=== PATIENT | female | born 1940 | race Hispanic/Latino ===

== ENCOUNTER 2017-01-27 09:42 | Emergency (ER) | payer MEDICARE ==
[2017-01-27 09:42] VITALS: BMI 42.2
[2017-01-27 09:54] VITALS: BP 135/112; PULSE 97; O2SAT 99
[2017-01-27 09:58] VITALS: RESP 16; TEMP 97
--- NOTE | 2017-01-27 10:34 | ED PDOC ---
HPI: Head Injury Time Seen by Provider: 01/27/17 10:17 Chief Complaint (Nursing): Trauma Chief Complaint (Provider): head injury History Per: Patient History/Exam Limitations: no limitations Injury Occurred (Timing): Just Before Arrival Onset/Duration Of Symptoms: Sudden Onset Patient States: Fell Striking Head Severity: Mild Loss Of Consciousness: No Additional Complaint(s): 76 year old female brought in by EMS after fall and injury to head. Patient states she went to open door and stepped backwards, missed footing and fell onto wooden floor hitting back of her head. She reports remembering all event of fall and denies any LOC. Son witnessed fall. She denies any dizziness prior to or after fall. Denies and nausea or vomiting. Patient takes Aspirin daily, but did not take today and has not taken any of her medications today. Past Medical History Reviewed: Historical Data, Nursing Documentation, Vital Signs Vital Signs: Last Vital Signs Temp 97.0 F L 01/27/17 09:57 Pulse 97 H 01/27/17 09:57 Resp 16 01/27/17 09:57 BP 135/112 H 01/27/17 09:57 Pulse Ox 99 01/27/17 09:57 - Medical History PMH: CAD, HTN, Peripheral Edema, Pneumonia - Surgical History Surgical History: Appendectomy (AT AGE 15), CABG (01/02/2015 C/O DR. TOM), Coronary Stent (RCA 2004, DIAGONAL 2007) - Family History Family History: States: CAD - Living Arrangements Living Arrangements: With Family - Home Medications Home Medications: Ambulatory Orders Medication Instructions Recorded Acetaminophen [Tylenol] 650 mg PO Q6H PRN 01/06/15 Aspirin [Ecotrin] 81 mg PO DAILY 01/06/15 Cilostazol 50 mg PO DAILY 01/06/15 Ipratropium/Albuterol Sulfate 3 ml IH QID 01/06/15 [Duoneb 3 mg/3 ml-0.5 mg/3 ml 3 ml] MetFORMIN [glucOPHAGE] 500 mg PO BID 01/06/15 Pantoprazole [Protonix] 40 mg PO DAILY 01/06/15 Fluocinonide 0.05% Ointment [Lidex 1 appl TOP DAILY 01/21/15 0.05% Oint] Lactobacillus Acidophilus [Bacid 1 cap PO BID 01/21/15 Acidophilus] Mupirocin 2% Ointment [Bactroban 1 appl TOP Q12 01/21/15 Ointment] Furosemide [Lasix] 40 mg PO DAILY 02/03/15 GlipiZIDE SR [Glucotrol XL] 10 mg PO BID 02/03/15 Multivitamin [Multi-Delyn Liquid] 5 ml PO DAILY 02/03/15 - Allergies Allergies/Adverse Reactions: Allergies Allergy/AdvReac Type Severity Reaction Status Date / Time No Known Allergies Allergy Verified 01/27/17 09:52 Review of Systems Eyes: Negative for: Pain, Vision Change Cardiovascular: Negative for: Chest Pain, Palpitations Respiratory: Negative for: Cough, Shortness of Breath Gastrointestinal: Negative for: Nausea, Vomiting Musculoskeletal: Negative for: Neck Pain, Back Pain Skin: Positive for: Other (abrasion to head) Neurological: Negative for: Weakness, Numbness, Change in Speech, Confusion, Seizures, Headache, Dizziness Physical Exam - Reviewed Nursing Documentation Reviewed: Yes Vital Signs Reviewed: Yes - Physical Exam Appears: Positive for: Well, Non-toxic, No Acute Distress Skin: Positive for: Warm, Dry Eye Exam: Positive for: Normal appearance, EOMI, PERRL Neck: Positive for: Normal, Painless ROM Cardiovascular/Chest: Positive for: Regular Rate, Rhythm, Chest Non Tender. Negative for: Murmur Respiratory: Positive for: Normal Breath Sounds. Negative for: Wheezing, Respiratory Distress Back: Positive for: Normal Inspection. Negative for: Decreased ROM Extremity: Positive for: Normal ROM. Negative for: Tenderness, Deformity, Swelling Neurologic/Psych: Positive for: Alert, Oriented Comments: Head: Normocephalic. Mild tenderness and mild swelling to mid-posterior scalp with 3mm linear abrasion, no active bleeding. - ECG O2 Sat by Pulse Oximetry: 99 Medical Decision Making Medical Decision Makin y.o female with acute head injury, appears to be caused by mechanical fall. Patient takes ASA daily, not taken today. No neuro deficits. Accucheck was 366. EKG is NS at 93bpm with incomplete LBBB and LVH, no acute changes from prior EKG 01/20/15; also viewed by Dr Jean-Baptiste. Head CT ordered. Patient does not want any analgesic. Scalp wound irrigated with NS, superificial wound, no deep involvement and does not need laceration repair. Bacitracin was applied. 1133: CT head radiology report reviewed Generalized volume loss. Nonspecific white matter changes. Patient remains alert and oriented in no distress. She is asking for discharge. Patient advised on symptoms of concern with head injury and to return to hospital for any changes Disposition - Clinical Impression Clinical Impression: Head contusion, Accidental fall - Patient ED Disposition Is Patient to be Admitted: No Counseled Patient/Family Regarding: Studies Performed, Diagnosis, Need For Followup - Disposition Disposition: Routine/Home Disposition Time: 11:34 Condition: STABLE Additional Instructions: Advise return to the ER if any alteration in behavior or mental status, severe headache, nausea, persistent vomiting, or loss of consciousness occurs. Instructions: Head Injury (ED) Forms: [facility] (Chinese) - POA Present On Arrival: Falls Or Trauma (head injury)
--- NOTE | 2017-01-27 11:22 | CT ---
PROCEDURE: CT HEAD WITHOUT CONTRAST. HISTORY: s.p head injury posterior area COMPARISON: None available. TECHNIQUE: Axial computed tomography images were obtained through the head/brain without intravenous contrast. Radiation dose: Total exam DLP = 769.72 mGy-cm. This CT exam was performed using one or more of the following dose reduction techniques: Automated exposure control, adjustment of the mA and/or kV according to patient size, and/or use of iterative reconstruction technique. FINDINGS: HEMORRHAGE: No intracranial hemorrhage. BRAIN: Diffuse atrophy with prominence of the ventricles and sulci noted. No mass effect or edema. Dense intracranial atherosclerosis. Scattered white matter hypodensities, which are nonspecific, but often seen with chronic microvascular ischemic disease. Please note that MRI with diffusion imaging is more sensitive in the detection of acute ischemic event. VENTRICLES: No hydrocephalus. CALVARIUM: Unremarkable. PARANASAL SINUSES: Unremarkable as visualized. No significant inflammatory changes. MASTOID AIR CELLS: Unremarkable as visualized. No inflammatory changes. OTHER FINDINGS: None. IMPRESSION: Generalized volume loss. Nonspecific white matter changes.
== END 2017-01-27 11:42 | disposition home or self-care (01) ==
LOC: H.ER 09:42
DX: S09.90XA Unspecified injury of head, initial encounter (principal); W19.XXXA Unspecified fall, initial encounter; Y92.89 Other specified places as the place of occurrence of the external cause; I10 Essential (primary) hypertension; I25.10 Atherosclerotic heart disease of native coronary artery without angina pectoris; Z79.82 Long term (current) use of aspirin; Z79.84 Long term (current) use of oral hypoglycemic drugs; Z82.49 Family history of ischemic heart disease and other diseases of the circulatory system; Z95.1 Presence of aortocoronary bypass graft; Z95.5 Presence of coronary angioplasty implant and graft